=== PATIENT | male | born 1985 | race Hispanic/Latino ===

== ENCOUNTER 2022-04-23 00:46 | Emergency (ER) | payer OTHER ==
[~2022-04-23] VITALS: Ht 177.8 cm; Wt 122.5 kg
[2022-04-23] MEDS ORDERED: ADENOSINE 6 MG/2 ML VIAL IV ONE ×2 (01:00)
[2022-04-23] MEDS ORDERED: SODIUM CHLORIDE 0.9% 1000ML 1,000 ML IV ONE (01:00)
[2022-04-23 01:01] LABS: BASOPHILS % 0.4 % (0.0-1.0); EOSINOPHILS # (AUTO) 0.2 (0.0-0.4); EOSINOPHILS % 1.6 % (0.0-6.0); HEMATOCRIT 50.3 % (38.2-49.6); HEMOGLOBIN 16.9 g/dL (14.0-18.0); LYMPHOCYTES # (AUTO) 3.4 (1.0-3.2); LYMPHOCYTES % 31.9 % (18.0-39.1); MEAN CORPUSCULAR HEMOGLOBIN 29.6 pg (28-32); MEAN CORPUSCULAR HGB CONC 33.6 g/dL (31-35); MEAN CORPUSCULAR VOLUME 88.2 fL (81-99); MONOCYTES # (AUTO) 0.6 (0.2-0.8); MONOCYTES % 5.3 % (4.4-11.3); NEUTROPHILS # (AUTO) 6.4 (2.1-6.9); NEUTROPHILS % 60.4 % (38.7-80.0); PLATELET COUNT 286 x10e3/uL (140-360); RED CELL DISTRIBUTION WIDTH 12.1 % (11.7-14.4)
[2022-04-23] MEDS ORDERED: AMIODARONE 900MG 500 ML IV ONE (01:06)
[2022-04-23] MEDS ORDERED: AMIODARONE HCL 100 ML IV ONE (01:06)
[2022-04-23] MEDS ORDERED: METOPROLOL TARTRATE INJ 1 MG/ML VIAL ONE (01:09)
[2022-04-23] MEDS ORDERED: ASPIRIN 81 MG CHEW TAB PO ONE (01:15)
[2022-04-23 01:18] LABS: INR 0.95; PROTHROMBIN TIME 13.6 seconds (11.9-14.5)
[2022-04-23 01:19] LABS: PARTIAL THROMBOPLASTIN TIME 29.9 seconds (23.8-35.5)
[2022-04-23 01:21] LABS: ALBUMIN 4.2 g/dL (3.5-5.0); ALBUMIN/GLOBULIN RATIO 1.2 (0.8-2.0); ANION GAP 18.2 mmol/L (8-16); CREATININE, SERUM 0.91 mg/dL (0.72-1.25); POTASSIUM 3.2 mmol/L (3.5-5.1)
[2022-04-23] MEDS ORDERED: HEPARIN 25,000 UNIT DRIP IV ONE (01:24)
[2022-04-23] MEDS ORDERED: HEPARIN SOD (PORCINE) 5,000 UNIT/ML VIAL IV ONE (01:45)
[2022-04-23] MEDS ORDERED: HEPARIN 25,000 UNIT 1,000 UNIT in DEXTROSE 5% 250ML 250 ML IV SCH ×4 (01:45)
[2022-04-23] MEDS ORDERED: AMIODARONE HCL 150 MG/100 ML BAG IV ONE (01:45)
[2022-04-23 02:16] VITALS: BP 120/90
== END 2022-04-23 02:22 | disposition other institution (70) ==
LOC: ER 00:48
DX: R07.9 Chest pain, unspecified (principal); I47.1 Supraventricular tachycardia; I24.9 Acute ischemic heart disease, unspecified; J10.1 Influenza due to other identified influenza virus with other respiratory manifestations; Z20.822 Contact with and (suspected) exposure to COVID-19; R94.31 Abnormal electrocardiogram [ECG] [EKG]
CPT/HCPCS: 36415; 71045; 80053; 82550; 82553; 84484; 85025; 85610; 85730; 87400; 93005; 99285; J0153; J1644; J7030; U0002